=== PATIENT | male | born 1955 | race Caucasian/White ===

== ENCOUNTER 2022-11-21 05:34 | Inpatient (IN) | payer MEDICARE ==
[~2022-11-21] VITALS: Ht 177.8 cm; Wt 108.1 kg
--- NOTE | 2022-11-21 08:00 | NUR ---
ICU ADMISSION: THE PT HAS ARRIVED TO ICU09 AT 0715 THIS AM A [employer]BRA TRANSFER FOR ICU LEVEL CARE FROM [facility] ED. ON ARRIVAL, THE PT IS AWAKE, A&O TO ALL. HE STS FEELING SOB BUT OVERALL IMPROVED SINCE INITIAL VISIT TO ED LAST NIGHT. LS DIM T/O, RESPIRATIONS SHALLOW/ TACHYPNEIC. PT ON 4L NC W/ O2 SATS 88-90%, TITRATED UP TO 6L NC. MONITOR SHOWS ST W/ HR 110s, HYPOTENSION PERSISTANT W/ LEVOPHED INITIALLY INFUSING AT 0.15 MCG/KG/MIN, WHICH IS APPROX 20 MCG/MIN, INFUSING PERIPHERALLY. THIS RN HAS TRANSFERRED PT TO 20 MCG/MIN OF LEVOPHED PER HOSPITAL TITRATIONS. PT DENIES CP AT THIS TIME. PT HAS NO GI COMPLAINTS, IS CURRENTLY NPO, WILL REQUEST DIET ORDER FROM PROVIDER R/T PT's IMPROVED RESPIRATORY STATUS. LEWIS PLACED BY [facility] ED IS PATENT/ DRAINING CLOUDY YELLOW URINE. UA COLLECTED & SENT PER INFECTION CONTROL. SKIN CONDITION OVERALL POOR W/ NUMEROUS WOUNDS THAT APPEAR TO BE BLISTERS THAT HAVE OPENED UP TO BLE. BLE ARE DRY & SCALING, DARK DISCOLORATION OF SKIN. GROIN & RIGHT AXILLA ARE REDENNED & MOIST. ALL WOUNDS HAVE BEEN CLEANSED & LEFT OPEN TO AIR DUE TO EXCESS MOISTURE. DR BAILEY IS ADMITTING PROVIDER & HAS COME TO BEDSIDE TO RECEIVE AN UPDATE ON THE PT. HE WILL PLACE ADMITTING ORDERS & WOULD LIKE DR SHEIKH CONSULTED FOR CRITICAL CARE MANAGEMENT OF A SEPTIC PT W/ HIGH VASOPRESSOR REQUIREMENTS. ORDERS FOR PICC LINE OBTAINED & LINE HAS BEEN PLACED BY CANDIDA Vargas PICC RN. WILL CONTINUE TO MONITOR & UPDATE NEEDED.
[2022-11-21 08:12] LABS: Source, Urine Foley catheter
[2022-11-21 08:15] LABS: Appearance, Urine Hazy (Clear); Bilirubin, Urine Neg (Neg); Blood, Urine 4+ (Neg); Color, Urine Yellow (P-Yellow); Glucose Qualitative, Urine Neg (Neg); Ketones, Urine Neg (Neg); Leukocyte Esterase, Urine 3+ (Neg); Nitrite, Urine Neg (Neg); Protein, Urine 2+ (Neg); Urobilinogen, Urine NORM (Normal)
[2022-11-21 08:24] LABS: Amorphous Mod (0-Heavy); Bacteria Many /hpf; Squamous Epithelial Cells Mod /hpf (Few); Transitional Epithelial Cells Few /hpf (0-Rare)
[2022-11-21 08:27] LABS: Mucus Light (0-Heavy); Renal Epithelial Rare /hpf (0-Rare)
[2022-11-21 08:28] LABS: Hyaline Casts 0-2 /lpf (0-2)
[2022-11-21 08:44] LABS: BASOPHILS ABSOLUTE AUTO 0.04 K/mm3 (0.00-0.23); BASOPHILS PERCENT AUTO 0 % (0-2); EOSINOPHILS ABSOLUTE AUTO 0.27 K/mm3 (0.00-0.68); EOSINOPHILS PERCENT AUTO 2 % (0-6); Hematocrit 39.6 % (37.0-53.0); Hemoglobin 13.2 g/dL (13.5-17.5); IMMATURE GRAN ABSOLUTE AUTO 0.05 K/mm3 (0.00-0.10); IMMATURE GRAN PERCENT AUTO 0 % (0-1); LYMPHOCYTES PERCENT AUTO 1 % (21-46); MONOCYTES ABSOLUTE AUTO 0.87 K/mm3 (0.16-1.47); MONOCYTES PERCENT AUTO 7 % (4-13); Mean Corpuscular HGB 32.8 pg (26.0-34.0); Mean Corpuscular HGB Conc 33.3 g/dL (31.5-36.5); Mean Corpuscular Volume 99 fL (80-100); NEUTROPHILS ABSOLUTE AUTO 11.59 K/mm3 (1.96-9.15); NEUTROPHILS PERCENT AUTO 90 % (41-73); Platelet Count 159 K/mm3 (150-400); RDW Coefficient Variation 15.3 % (11.7-14.2); Red Blood Cell Count 4.02 M/mm3 (4.30-5.90); White Blood Cell Count 12.92 K/mm3 (4.00-11.30)
[2022-11-21 08:54] LABS: Bun/Creatinine Ratio 20.9 (12.0-20.0); Calcium, Blood 8.3 mg/dL (8.5-10.1); Creatinine, Blood 1.82 mg/dL (0.60-1.20); Potassium, Blood 4.6 mmol/L (3.5-5.5)
[2022-11-21] MEDS ORDERED: ACET500 PO (10:00)
[2022-11-21] MEDS ORDERED: Vitamin D1000 UNI1 PO (10:01)
[2022-11-21] MEDS ORDERED: METO25ER PO (10:02)
[2022-11-21] MEDS ORDERED: TORSE20 PO (10:02)
[2022-11-21] MEDS ORDERED: SPIR25 PO (10:02)
[2022-11-21 10:41] LABS: Albumin, Blood 2.8 g/dL (3.4-5.0); Bilirubin, Direct 0.8 mg/dL (0.0-0.3); Bilirubin, Indirect 1.5 mg/dL (0.1-0.7); Bilirubin, Total 2.3 mg/dL (0.1-1.0); Globulin, Blood 2.7 g/dL (2.2-4.0); Total Protein, Blood 5.5 g/dL (6.4-8.2)
--- NOTE | 2022-11-21 13:39 | NUR ---
Spoke with Dr Soto and discussed case. Supportive visit this afternoon. Pt resting in bed and is A&OX4. Pt reports mild anxiety. Pt appears dyspneic as evidenced by abiltity speak only 2-3 words. Brief review of plan of care. Pt reports being for 43 years and has a son living in [place] and a daughter living in [place]. Listened as Pt reports he and his are on limited income and has only $135 a month to spend on food. 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 Continued supportive visit. Pt agreeable for continued PC visits. Spoke with AMY Anna and reported concerns. Wilfrido will discuss resources with Pt. Palliative Care will remain available
--- NOTE | 2022-11-21 18:15 | NUR ---
SHIFT SUMMARY: NO ACUTE CHANGES SINCE PRIOR UPDATES. PT CONTINUES TO "FEEL BETTER" THE DAY PROGRESSES & HAS BEEN ABLE TO REST SOME WELL. A&O TO ALL, NO C/O PAIN AT REST. LS DIM, PT ON 2L NC W/ O2 SATS > 92%. MONITOR SHOWS SR W/ HR 80s, HYPOTENSION PERSISTANT W/ LEVOPHED INFUSING AT 14 MCG/MIN & VASOPRESSIN INFUSING ALSO. PT TOLERATING PO INTAKE WELL W/ NO GI COMPLAINTS. LEWIS PATENT/ DRAINING CLEAR YELLOW URINE W/ LARGE AMNTS OUTPUT AFTER DIURESIS PER EMAR. SKIN CONDITION OVERALL FRAGILE, WOUND CONSULT PLACED FOR MANAGEMENT OF NUMEROUS WOUNDS & SKIN ISSUES. PHOTOS COMPLETED ON ADMIT & PLACED IN CHART. Q2H REPOSITIONING TO MAINTAIN SKIN INTEGRITY. WILL CONTINUE TO MONITOR & REPORT OFF TO ONCOMING RN.
[2022-11-22 04:21] LABS: Hematocrit 39.3 % (37.0-53.0); Hemoglobin 12.8 g/dL (13.5-17.5); Mean Corpuscular HGB 32.7 pg (26.0-34.0); Mean Corpuscular HGB Conc 32.6 g/dL (31.5-36.5); Mean Corpuscular Volume 101 fL (80-100); Platelet Count 140 K/mm3 (150-400); RDW Coefficient Variation 15.1 % (11.7-14.2); RDW Standard Deviation 56.1 fL (35.1-46.3); Red Blood Cell Count 3.91 M/mm3 (4.30-5.90); White Blood Cell Count 14.76 K/mm3 (4.00-11.30)
[2022-11-22 04:26] LABS: Bun/Creatinine Ratio 20.5 (12.0-20.0); Calcium, Blood 8.4 mg/dL (8.5-10.1); Creatinine, Blood 1.9 mg/dL (0.60-1.20); Magnesium, Blood 2.2 mg/dL (1.6-2.4); Phosphorus, Blood 3.6 mg/dL (2.5-4.9); Potassium, Blood 4.8 mmol/L (3.5-5.5)
--- NOTE | 2022-11-22 06:52 | NUR ---
SHIFT SUMMARY OVERNIGHT, PATIENT ALERT AND ORIENTED X4. PLEASANT AND COOPERATIVE. GENERALIZED WEAKNESS NOTED. MONITOR SHOWING SR 1AVB, HR 70-80S. BP SUPPORTED WITH VASO AND LEVO; LEVO WEANED DOWN TO 10MCG/MIN. +3/+4 GENERALIZED SWELLING. GOOD RESPONSE TO DIURESIS; 4L URINE OUTPUT VIA LEWIS S/P BUMEX. NO BM OVERNIGHT. SEVERAL WOUNDS/BLISTERS PRESENT; WOUND CONSULT PLACED. MEPILEX PLACED TO COCCYX AND TURNED Q2. NO FURTHER CONCERNS.
--- NOTE | 2022-11-22 07:33 | NUR ---
Assumed care. Report received from kitty REYES. Pt sleeping at this time, on 02 via NC at 4 L/min. Levophed infusing at 10 mcg/min, vasopressin at 0.04 units/min, NS TKO. VS within normal ranges. No acute needs, will continue to monitor.
--- NOTE | 2022-11-22 18:27 | NUR ---
Shift summary. Pt continues on Levophed at 10 mcg/min and vasopressin 0.04 unit/min. Pt using supplemental oxygen during periods of exertion, otherwise on RA. PT/OT evals completed today, pt able to dangle legs on side of bed with assistance. See assessment/chart for further information. VS within normal ranges this shift. Will continue to monitor and report off to kitty REYES.
--- NOTE | 2022-11-22 19:42 | NUR ---
ASSUMED CARE PT IS A&O X4;PLEASANT. SPO2 >92% ON RA; MAP >65 W/ LEVOPHED GTT @ 10MCG/MIN; VASOPRESSIN AT 0.04 UNITS/MIN. DENIES CP, SOB, OR NAUSEA. WOUNDS NOTED IN BLE (SEE PT CHART FOR PICTURES). PT STATES HE HAS 7-8/10 PAIN, BUT DOES NOT WANT ANYTHING FOR PAIN WHEN ASKED. LEWIS CATHETER DRAINING TO GRAVITY.
[2022-11-22 22:27] LABS: Vancomycin, Trough 25.8 ug/mL (5.0-10.0)
[2022-11-23 05:32] LABS: Hematocrit 37.5 % (37.0-53.0); Hemoglobin 12.3 g/dL (13.5-17.5); Mean Corpuscular HGB 32.5 pg (26.0-34.0); Mean Corpuscular HGB Conc 32.8 g/dL (31.5-36.5); Mean Corpuscular Volume 99 fL (80-100); Mean Platelet Volume 10.5 fL (9.1-12.4); Platelet Count 133 K/mm3 (150-400); RDW Coefficient Variation 14.9 % (11.7-14.2); Red Blood Cell Count 3.79 M/mm3 (4.30-5.90); White Blood Cell Count 11.11 K/mm3 (4.00-11.30)
[2022-11-23 06:17] LABS: Anion Gap 3 mmol/L (6-16); Blood Urea Nitrogen 48 mg/dL (8-24); Bun/Creatinine Ratio 24.6 (12.0-20.0); CO2, Blood 34 mmol/L (21-32); Calcium, Blood 8.7 mg/dL (8.5-10.1); Chloride, Blood 98 mmol/L (98-108); Creatinine, Blood 1.95 mg/dL (0.60-1.20); Glomerular Filtration Rate 37 (60-); Glucose, Blood 122 mg/dL (70-99); Magnesium, Blood 2.1 mg/dL (1.6-2.4); Potassium, Blood 4.3 mmol/L (3.5-5.5); Sodium, Blood 135 mmol/L (136-145); Vancomycin, Random 26.7 ug/mL
--- NOTE | 2022-11-23 06:34 | NUR ---
SHIFT SUMMARY PT IS A&O X4; SPO2 >92% ON RA; MAP >65 W/ LEVOPHED @ 10MCG/MIN; VASOPRESSIN @ 0.04 UNITS/MIN. SBP HAS MAINTAINED IN THE 90-100'S. CONTINUES TO DENY CP, SOB, NAUSEA. HAS COMPLAINTS OF 8/10 PAIN IN LEGS, BUT HAS DECLINED ANY PAIN MEDICATION, STATED THAT HE WILL REASSESS THE NEXT TIME HE HAS PHYSICAL THERAPY. LEWIS PATENT AND DRAINING TO GRAVITY.
--- NOTE | 2022-11-23 19:15 | NUR ---
SUMMARY Neuro: A&O x 2. Does not know exact day but is aware that it is spring 2022. Hard of hearing. Pleasant and cooperative with care. Pain: Pt requested tylenol for leg pain. Tolerated tylenol without issue. Musc: Able to assist with ADLs. Dangled on bed with assist from physical therapy Resp: SpO2 90% or greater with 2 LPM NC while awake. Cardiac: SR per monitor. BP stable with 10 mcg/min levophed and 0.04 units/min vasopressin. No changes to edema, pulses, or capillary refill. Consulted Dr Colindres with regards to abnormal echo results. GI: Excellent appetite. One BM this shift, soft and green. : Excellent urine output from carnes catheter. Skin: Unchanged from inital assessment.
--- NOTE | 2022-11-23 21:41 | NUR ---
ASSUMED CARE AT 1900 PT LAYING IN BED FINISHING HIS DINNER AT SHIFT CHANGE. PT IS A/O X4 BUT MODERATLY [place]; GENERALIZED WEAKNESS NOTED. SPO2 >95% ON 1LCN. HR 80'S. SBP 90-100, MAP 65-80; LEVOPHED INFUSING AT 8MCG/MIN AND VASOPRESSING INFUSING AT 0.04UNITS/MIN; MODERATE TO SEVER EDEMA NOTED TO BLE UP INTO ABD. TOLERATING PO INTAKE WELL. LEWIS IN PLACE AND DRAINING TO GRAVITY. SKIN FOLDS CLEANED AND POWDER REAPPLIED. PICC TO ERIKA CROOKS, DRESSING C/D/I. SEE SHIFT ASSESSMENT FOR FULL ASSESSMENT. DR WOO IN TO SEE PT AROUND 1999. HE GATHERED HX FROM THE PT AND DISCUSSED PLANS GOING FORWARD. HE REQUESTED THAT MEDICAL RECORDS FROM [facility] BE OBTAINED INCLUDING HIS LAST ECHO AND LAST CARDIOLOGY VISIT. A REQUEST FAXED TO [facility] @ [phone] AT [phone].
--- NOTE | 2022-11-24 01:21 | NUR ---
ASSUMPTION OF CARE: I HAVE ASSUMED CARE OF PT, REPORT RECIEVED FROM AMY NICHOLSON.
[2022-11-24 04:28] LABS: Vancomycin, Random 19.7 ug/mL
--- NOTE | 2022-11-24 05:49 | NUR ---
SHIFT SUMMARY: NO ACUTE CHANGES THIS SHIFT. PT REMAINS ON NC @ 2LPM WITH VSS THROUGHOUT THE NIGHT. PT SLEPT FOR THE MAJORITY OF THE SHIFT. CXR COMPLETED THIS MORNING; MORNING LABS CAME BACK WITH NO ABNORMAL VALUES. LEVO GTT @ 4 MCG AND SBP 90'S WITH MAP 65<. 2 L URINE OUTPUT THIS SHIFT. BED LOWERED, CALL LIGHT IN REACH, WILL CONTINUE TO MONITOR UNTIL ONCOMING RN ARRIVES.
[2022-11-24 07:34] LABS: BASOPHILS ABSOLUTE AUTO 0.03 K/mm3 (0.00-0.23); BASOPHILS PERCENT AUTO 0 % (0-2); EOSINOPHILS ABSOLUTE AUTO 0.09 K/mm3 (0.00-0.68); EOSINOPHILS PERCENT AUTO 1 % (0-6); Hematocrit 35.5 % (37.0-53.0); Hemoglobin 11.7 g/dL (13.5-17.5); IMMATURE GRAN ABSOLUTE AUTO 0.04 K/mm3 (0.00-0.10); IMMATURE GRAN PERCENT AUTO 1 % (0-1); LYMPHOCYTES ABSOLUTE AUTO 0.46 K/mm3 (0.84-5.20); LYMPHOCYTES PERCENT AUTO 5 % (21-46); MONOCYTES PERCENT AUTO 9 % (4-13); Mean Corpuscular HGB 32.1 pg (26.0-34.0); Mean Corpuscular Volume 98 fL (80-100); Mean Platelet Volume 11.3 fL (9.1-12.4); NEUTROPHILS ABSOLUTE AUTO 7.19 K/mm3 (1.96-9.15); NEUTROPHILS PERCENT AUTO 84 % (41-73); Platelet Count 135 K/mm3 (150-400); RDW Coefficient Variation 14.4 % (11.7-14.2); RDW Standard Deviation 51.8 fL (35.1-46.3); Red Blood Cell Count 3.64 M/mm3 (4.30-5.90); White Blood Cell Count 8.61 K/mm3 (4.00-11.30)
[2022-11-24 07:57] LABS: Albumin, Blood 2.6 g/dL (3.4-5.0); Bilirubin, Total 1.3 mg/dL (0.1-1.0); Calcium, Blood 8.5 mg/dL (8.5-10.1); Creatinine, Blood 2.21 mg/dL (0.60-1.20); Globulin, Blood 2.6 g/dL (2.2-4.0); Potassium, Blood 3.9 mmol/L (3.5-5.5); Total Protein, Blood 5.2 g/dL (6.4-8.2)
--- NOTE | 2022-11-24 09:36 | NUR ---
ASSUMED CARE REPORT FROM CHAVA REYES AT 0700. PT RESTING IN BED. RESPONSIVE TO VERBAL STIMULI. ORIENTED TO SELF ONLY. STATES HE IS ON "FISHING BOAT." REORIENTS EASILY. DENIES COMPLAINTS. FOLLOWS SIMPLE COMMANDS. LUNGS CLEAR, 3L VIA NC, O2 SATS >92%. SR, RATE 60'S. LEVO GTT INFUSING FOR MAP>65. ABD ROUND, SOFT, NON TENDER, BT X4. GOOD APPETITE. LEWIS PATENT, DRAINING CLEAR YELLOW URINE TO GRAVITY. 2+ EDEMA TO YISSEL, SKIN SCALING c BLISTERS. GROIN RED, MOIST, NYSTATIN APPLIED, SEE SKIN ASSESSMENT. BEDBATH COMPLETE, UP TO CHAIR c LIFT. PICC TO RUE, DRESSING C/D/I. WILL CONTINUE TO MONITOR.
--- NOTE | 2022-11-24 14:08 | NUR ---
Assumed care of pt from Mary REYES at 1315. Pt just transferred back to bed from recliner using lift. Currently 2 LPM NC. SpO2 90% or greater. Levophed 6 mcg/min. Vasopressin off.
--- NOTE | 2022-11-24 18:39 | NUR ---
SUMMARY Neuro: Mentation varies. Pt lethargic after returning back to bed from chair. Currently A&O x 1. Intermittently confused and makes comments that raises concern that he may be hallucinating. Musc: Sat in chair for approx 4 hours today. Resp: SpO2 90% or greater 2 LPM NC Cardiac: BP stable with 6 mcg/min levophed. Vasopressin off. GI: Excellent appetite. : Excellent urine output. Skin: Unchagned from previous assessments.
--- NOTE | 2022-11-24 20:10 | NUR ---
ASSUMED CARE ASSUMED CARE AT 1900. PT A/O X 1. CONFUSED, PULLS AT LINES OCCASIONALLY BUT EASILY REDIRECTED. FOLLOWS COMMANDS, AND MOVES ALL EXTREMITIES SPONTANEOUSLY. ON LEVOPHED GTT TO KEEP MAP GREATER THEN 95. SEE FLOWSHEET FOR TITRATIONS. SR c PVC'S RATE 70-80'S. VSS. ON 2L NC. SEE SHIFT ASSESSMENT FOR FULL ASSESSMENT. LEWIS PATENT AND DRAINING TO GRAVITY.
--- NOTE | 2022-11-25 01:21 | NUR ---
CALL TO HOSP PT C/O [facility] 04/05 HEADACHE AND STATES "I CAN FEEL MY HEART BEATING" WHILE POINTING TO CHEST. PT DENIES CHEST PAIN. PT TEMP INCREASED TO 99.8. OTHER VSS. LEVOPHED GTT CONTINUES. PT LETHARGIC, WILL ANSWER QUESTIONS THEN STARE ACROSS ROOM, AND SPEECH LESS CLEAR. KEEPS STATING "I'M TIRED". HOSP CALLED AND AT BEDSIDE. STAT HEAD CT ORDERED.
[2022-11-25 03:24] LABS: BASOPHILS ABSOLUTE AUTO 0.03 K/mm3 (0.00-0.23); BASOPHILS PERCENT AUTO 0 % (0-2); EOSINOPHILS ABSOLUTE AUTO 0.11 K/mm3 (0.00-0.68); EOSINOPHILS PERCENT AUTO 2 % (0-6); Hematocrit 38.7 % (37.0-53.0); Hemoglobin 12.7 g/dL (13.5-17.5); IMMATURE GRAN ABSOLUTE AUTO 0.06 K/mm3 (0.00-0.10); IMMATURE GRAN PERCENT AUTO 1 % (0-1); LYMPHOCYTES ABSOLUTE AUTO 0.35 K/mm3 (0.84-5.20); LYMPHOCYTES PERCENT AUTO 5 % (21-46); MONOCYTES ABSOLUTE AUTO 0.81 K/mm3 (0.16-1.47); MONOCYTES PERCENT AUTO 12 % (4-13); Mean Corpuscular HGB 32.7 pg (26.0-34.0); Mean Corpuscular HGB Conc 32.8 g/dL (31.5-36.5); Mean Corpuscular Volume 100 fL (80-100); Mean Platelet Volume 10.4 fL (9.1-12.4); NEUTROPHILS PERCENT AUTO 80 % (41-73); Platelet Count 144 K/mm3 (150-400); RDW Coefficient Variation 14.3 % (11.7-14.2); RDW Standard Deviation 52.6 fL (35.1-46.3); Red Blood Cell Count 3.88 M/mm3 (4.30-5.90); White Blood Cell Count 6.86 K/mm3 (4.00-11.30)
[2022-11-25 03:38] LABS: Blood Urea Nitrogen 57 mg/dL (8-24); Bun/Creatinine Ratio 28.5 (12.0-20.0); Calcium, Blood 8.5 mg/dL (8.5-10.1); Chloride, Blood 91 mmol/L (98-108); Glomerular Filtration Rate 36 (60-); Glucose, Blood 119 mg/dL (70-99); Potassium, Blood 3.6 mmol/L (3.5-5.5); Sodium, Blood 137 mmol/L (136-145)
[2022-11-25 03:40] LABS: Anion Gap Unable to Calculate mmol/L (6-16)
[2022-11-25 03:41] LABS: CO2, Blood >45 mmol/L (21-32)
[2022-11-25 04:15] LABS: Base Excess Venous 19.5 mmol/L; Bicarbonate Venous 38.9 mmol/L (24.0-30.0); PCO2 Venous 88.5 mmHg (38-42); PO2 Venous 46.5 mmHg (38-42); pH Blood Venous 7.32 (7.34-7.37)
--- NOTE | 2022-11-25 04:55 | NUR ---
CALL TO HOSP CALL PLACED TO HOSP REGARDING CHEM 8 CO2 OF GREATER THAN 45. VBG ORDERED AND RESULTS CALLED TO HOSP. BIPAP/CPAP PROTOCOL ORDERED. RT NOTIFIED AND IN ROOM TO SET UP BIPAP. VBG ORDERED TO BE DRAWN IN 2 HOURS.
--- NOTE | 2022-11-25 05:14 | NUR ---
SHIFT SUMMARY SEE PREVIOUS NOTES. PT CONTINUES TO BE A/O X 1. LETHARGIC BUT FOLLOWING COMMANDS AND MOVING ALL EXTREMITIES WHEN ASKED. ON LEVOPHED GTT TO KEEP MAP GREATER THAN 65 SEE FLOWSHEET FOR TITRATIONS. VSS. ON BIPAP STARTING 0505. PLAN TO RE-DRAW VBG AT 0700. LEWIS PATENT AND DRAINING TO GRAVITY W/ GOOD OUTPUT.
--- NOTE | 2022-11-25 07:14 | NUR ---
Assumed care of pt at 0700. Report received from Justyna REYES. Pt on BiPAP 08/01 with 4 LPM bleed in. Lethargic. Responsive to verbal stimulus. Able to follow commands. Moves all extremities with equal strength and range of motion. Levophed 8 mcg/min. Vasopressin off.
[2022-11-25 07:36] LABS: Base Excess Venous 20.2 mmol/L; Bicarbonate Venous 40.7 mmol/L (24.0-30.0); PCO2 Venous 74.6 mmHg (38-42); pH Blood Venous 7.39 (7.34-7.37)
--- NOTE | 2022-11-25 09:03 | NUR ---
CALL TO DR. GLASER REGARDING INCREASE IN PRESSOR REQUIREMENTS AND DECREASED MENTATION DESPITE APPROPRIATE ABX THERAPY. DR GLASER STATES PT NEEDS TRANSFER TO [facility] THAT CAN PROVIDE CARDIAC SURGERY/MITRAL CLIP. PLAN TO START DOBUTAMINE AND LOOK FOR A HOSPITAL TO TRANSFER THE PT TO. DR GLASER WILL SEE THE PT LATER THIS MORNING.
--- NOTE | 2022-11-25 10:54 | NUR ---
Dr Escobedo at bedside to see patient. Levophed at 12 mcg/min and dobutamine 5 mcg/kg/min. Discussed with provider that levophed requirement increasing since dobutamine started. Provider stated to titrate down dobutamine and consider turning it off. Dobutamine decreased to 2.5 mcg/kg/min and MAP improved. Provider aware.
--- NOTE | 2022-11-25 18:45 | NUR ---
SUMMARY Patient departed from [facility] ICU at 1830 with life flight crew headed to [facility] for evaulation by cardiac surgery staff. Report called to Peyton REYES. This RN and battery charger tester Lissett accompanied patient and crew to helicopter. Called pt's spouse to notify her that pt is being transferred. Assessment at time of departure is as follows: Neuro/Musc/Psych: Answers questions, follows commands. Cantankerous and confused at times. Makes comments that suggest hallucination/delirium "This movie keeps playing over and over" (TV was off). Moves all extremities with equal strength and range of motion. Resp: Requires 2 LPM NC to maintain SpO2 90% or greater. Wears BiPAP with sleep / and 25% FiO2. Changed to V60 device this shift and had back up rate of 14. Lungs dim t/o. Cardiac: SR per monitor with PVCs. Labile pressor requirements. Was on 14 mcg/min levophed and 0.04 unit/min vasopressin at time of departure. GI: Excellent appetite. No BM this shift. : Excellent urine output from carnes. Skin: No changes to initial assessment. CHG bath given and antifungal powder applied to skin folds.
== END 2022-11-25 18:17 | disposition short-term general hospital (02) | DRG 871 ==
LOC: ICUE 05:34 → ICUW 06:57
PROVIDERS: Family Medicine; Internal Medicine; Internal Medicine Critical Care Medicine; ADMIT Student in an Organized Health Care Education/Training Program
PROC: 3E03329 Introduction of Other Anti-infective into Peripheral Vein, Percutaneous Approach (ICD-10-PCS; principal; 2022-11-21)
PROC: 3E033XZ Introduction of Vasopressor into Peripheral Vein, Percutaneous Approach (ICD-10-PCS; 2022-11-21)
PROC: 02HV33Z Insertion of Infusion Device into Superior Vena Cava, Percutaneous Approach (ICD-10-PCS; 2022-11-21)
PROC: 0T9B70Z Drainage of Bladder with Drainage Device, Via Natural or Artificial Opening (ICD-10-PCS; 2022-11-21)
PROC: 3E02340 Introduction of Influenza Vaccine into Muscle, Percutaneous Approach (ICD-10-PCS; 2022-11-21)
PROC: 5A09357 Assistance with Respiratory Ventilation, Less than 24 Consecutive Hours, Continuous Positive Airway Pressure (ICD-10-PCS; 2022-11-25)
DX: A41.4 Sepsis due to anaerobes (principal); I50.33 Acute on chronic diastolic (congestive) heart failure; I51.1 Rupture of chordae tendineae, not elsewhere classified; J18.9 Pneumonia, unspecified organism; R65.21 Severe sepsis with septic shock; J69.0 Pneumonitis due to inhalation of food and vomit; N17.9 Acute kidney failure, unspecified; E87.3 Alkalosis; Z23 Encounter for immunization; I08.3 Combined rheumatic disorders of mitral, aortic and tricuspid valves; I71.21 Aneurysm of the ascending aorta, without rupture; I27.20 Pulmonary hypertension, unspecified; I11.0 Hypertensive heart disease with heart failure; A49.9 Bacterial infection, unspecified; R47.81 Slurred speech; Z88.6 Allergy status to analgesic agent; Z88.8 Allergy status to other drugs, medicaments and biological substances; Z87.891 Personal history of nicotine dependence; Z79.899 Other long term (current) drug therapy
CPT/HCPCS: 36415; 36569; 70450; 71045; 80048; 80053; 80076; 80202; 81001; 82803; 82947; 83605; 83735; 84100; 85025; 85027; 87040; 87086; 90686; 93306; 94660; 94760; 94762; 97110; 97162; 97166; 97530; A9270; C1751; J0696; J1120; J1250; J1650; J3370; J7050; J7060